=== PATIENT | male | born 1990 | race African-American/Black ===

== ENCOUNTER 2016-11-11 12:55 | Emergency (ER) | payer OTHER ==
[~2016-11-11] VITALS: Ht 182.9 cm; Wt 102.0 kg
[~2016-11-11 12:55] MED LIST: ADDERALL30 MG PO; SEROQUEL50 MG PO; XANAX1 MG PO; XANAX2 MG PO
[2016-11-11 14:27] LABS: EOSINOPHIL (%) 2.7 % (0-5); EOSINOPHIL COUNT 0.2 K/uL (0-0.3); HEMATOCRIT 45.1 % (38.0-50.0); IMMATURE GRANULOCYTE (%) 0.2 % (0.0-0.7); INSTRUMENT ABS NEUTROPHIL CT 5.2 K/uL; LYMPHOCYTE COUNT 2.5 K/uL (1.0-2.8); MCH 29.9 PG (29.0-34.0); MCHC 35.3 G/DL (30.0-36.0); MCV 84.8 FL (86-99); MEAN PLAT.VOLUME 8.6 uM^3 (9.0-12.4); MONOCYTE (%) 8.1 % (3-12); MONOCYTE COUNT 0.7 K/uL (0-0.8); NEUTROPHIL (%) 59.3 % (45-76); NEUTROPHIL COUNT 5.2 K/uL (1.8-6.4); PLATELET COUNT 267 K/uL (156-360); RBC DIS.WIDTH-CV 11.9 % (11.8-14.6); RBC DIS.WIDTH-SD 36.5 % (39-53); RED BLOOD COUNT 5.32 M/uL (4.00-5.50); WHITE BLOOD COUNT 8.7 K/uL (4.1-10.2)
[2016-11-11 14:41] LABS: CHLORIDE 108 mEq/L (99-109); POTASSIUM 3.7 mEq/L (3.7-5.4); SODIUM 140 mEq/L (136-147)
[2016-11-11 14:43] LABS: GLUCOSE 102 mg/dL (70-99)
[2016-11-11 14:44] LABS: AMPHETAMINE PRESUMPTIVE POSITIVE (500 ng/mL); ANION GAP 11 MEQ/L (2-14); BARBITURATES PRESUMPTIVE POSITIVE (200 ng/mL); BENZODIAZEPINES PRESUMPTIVE POSITIVE (150 ng/mL); COCAINE NEGATIVE (150 ng/mL); INTERNAL CONTROLS VALID? YES; METHADONE NEGATIVE (200 ng/mL); METHAMPHETAMINE NEGATIVE (500 ng/mL); OPIATES (MORPHINE) NEGATIVE (100 ng/mL); OXYCODONE NEGATIVE (100 ng/mL); PHENCYCLIDINE NEGATIVE (25 ng/mL); PROPOXYPHENE NEGATIVE (300 ng/mL); THC CANNABINOIDS NEGATIVE (50 ng/mL); TRICYCLIC ANTIDEPRESSANTS NEGATIVE (300 ng/mL)
[2016-11-11 14:46] LABS: GFR ESTIMATE (CALCULATED) > 59 mL/min/
[2016-11-11 14:47] LABS: UREA NITROGEN (BUN) 11 mg/dL (9-23)
[2016-11-11 14:52] LABS: ADD MEDTOX COMMENT Y; TROP-I INTERPRETATION NEGATIVE; TROPONIN-I < 0.01 ng/mL (0.0-0.30)
[2016-11-11 15:15] LABS: BENZODIAZEPINES, URINE SCREEN POSITIVE (200 ng/mL)
[2016-11-11] MEDS ORDERED: AUGMENTIN875 MG PO (17:18)
[2016-11-11] MEDS ORDERED: PROPRANOLOL HCL10 MG PO (17:18)
[2016-11-11] MEDS ORDERED: ZOLPIDEM TARTRA10 MG PO (17:56)
[2016-11-11 18:30] VITALS: BP 129/90
== END 2016-11-11 19:06 | disposition home or self-care (01) ==
LOC: EME 12:55
PROVIDERS: Emergency Medicine
DX: R00.2 Palpitations (principal); R07.9 Chest pain, unspecified; I49.3 Ventricular premature depolarization; R91.1 Solitary pulmonary nodule; I10 Essential (primary) hypertension; F31.9 Bipolar disorder, unspecified; F90.9 Attention-deficit hyperactivity disorder, unspecified type; F17.200 Nicotine dependence, unspecified, uncomplicated
CPT/HCPCS: 71010; 80048; 84443; 84484; 84999; 85025; 93005; 99281; 99284